=== PATIENT | female | born 1945 | race Caucasian/White ===

== ENCOUNTER 2021-05-29 11:12 | Inpatient (IN) | payer MEDICARE, BC ==
[2021-05-29] MEDS: HYDROmorphone 1 MG/ML Syringe IVPUSH PRN ×2 (15:06→21:04)
[2021-05-29] MEDS: Ondansetron 4 MG/2 ML SDV IV PRN ×2 (15:14→21:04)
[2021-05-29] MEDS: TACROLIMUS 1 MG PO SCH ×2 (16:10→21:09)
[2021-05-29] MEDS: Pantoprazole 40 MG Vial IVPUSH SCH (16:13)
--- NOTE | 2021-05-29 18:48 | HP ---
CHIEF COMPLAINT: Abdominal pain. HISTORY OF PRESENT ILLNESS: This 75-year-old female with significant history of a liver transplant back in 2008 for chronic active hepatitis who had a spell of pancreatitis remotely after transplant and then another one in 12/2019 after a fatty meal, that one was mild, she was treated outpatient, and she had a CT then. Today, she comes in with mid epigastric pain for 2 days. No vomiting but not really being able to eat, radiates to her back. This is severe, 9/10. She is having stools. They have been soft. No constipation. She just finished a course of doxycycline for her lungs. She otherwise has not had any cough. No shortness of breath. She has received her third COVID dose. She has had no fever or chills. No blood in her stool. ALLERGIES: Do include Augmentin, clarithromycin, grapefruit, pomegranate, and vancomycin. MEDICATIONS: Medication list is reviewed. Norflex as needed for muscle spasms; allopurinol 100 mg daily; Zithromax on Tuesday, Tuesday, and Tuesday; Tylenol 650 every 6 hours as needed for pain; Zoloft 50 mg daily; metformin 1000 in the morning and 1 in the evening; [place]-3; Pravachol 40 mg daily; Prilosec 20 mg daily; multivitamin; Lopressor 50 mg twice daily; Prograf 1 mg twice daily; and calcium 600 twice daily. PAST MEDICAL HISTORY: Includes atypical red blood cell antibodies; idiopathic gout; acute pancreatitis, unknown cause listed, she does not drink alcohol; colon polyps; and AVMs with peptic ulcer disease in the past. Alcohol abuse is listed on her chart, but the patient denies. Chronic active hepatitis since 1993, eventually had a liver transplant at [place] in 2008; depression; connective tissue disease; diverticulosis; essential hypertension; fibrocystic breasts; hemochromatosis; skin cancer, not melanoma; Mycobacterium avium complex; obstructive sleep apnea; overweight; osteoarthritis of the knees; stage 3 chronic kidney disease; previous subarachnoid hemorrhage in the past from alcohol; type 2 diabetes, probably since about 2012; and umbilical hernias seen on CT, she has not had surgery on them. SURGICAL HISTORY: Would be the liver transplant; cholecystectomy, which was open; hysterectomy; and knee arthroscopy bilateral. SOCIAL HISTORY: The patient is . She lives at home with her . She has 4 children. She does not smoke. Denies alcohol. FAMILY HISTORY: Both parents are . Both had heart disease. She has a sister who had lymphoma, non-Hodgkin's. REVIEW OF SYSTEMS: General: The patient is unaware of any fever or chills. No recent weight changes from 2 months ago. However, over the past year and a half, she has lost like 10 pounds. HEENT: No sore throat. No trouble swallowing. Cardiac: No chest pain. No palpitations. Respiratory: No cough, no shortness of breath. Abdominal: She has abdominal pain and nausea but no vomiting. No diarrhea. No constipation. Otherwise, all systems reviewed and found to be negative unless stated in HPI. PHYSICAL EXAMINATION: Vital Signs: On the admission to the hospital, her blood pressure is 129/71, temperature 98.4, pulse 73, respiratory rate 18, and O2 of 96% on room air. Weight is 146 pounds. General: She is in no acute distress. She is resting in the chair. Heart: Regular rate and rhythm. S1, S2 without murmur. Lungs: Lung sounds are clear to auscultation bilaterally without crackles or wheezes. Abdomen: Nondistended. Positive bowel sounds but it is exquisitely tender. Tender is in the mid epigastric to upper abdomen. There is no rebound. No guarding. Extremities: Warm and dry. No edema. Mental Status: She is alert. She is orientated x3. She is answering questions appropriately. LABORATORY DATA: Lab work collected in the clinic does show a normal white count of 8, hemoglobin 13.6, and platelets 257. Lipase over 3000 drawn at [facility]. Glucose 152, BUN 21, creatinine 1, sodium 138, potassium 4.5, chloride 105, bicarbonate 22, calcium 9.7, albumin 4, AST 13, ALT 8, and bilirubin 0.5. Urine is 0 to 5 wbc's and rbc's. Her last lipids done in February, triglycerides were just 198. Her abdominal x-ray shows a nonobstructive bowel gas pattern, maybe some mild constipation or stool burden, nothing concerning. ASSESSMENT: 1. Acute pancreatitis. This is recurrent. Etiology is unclear. I am not sure if it is related to her Prograf medication I didn't see it listed on side effects. I did call [place] and updated them. For now, she will be admitted for IV fluids, pain control with Dilaudid. NPO status. We will check a lactic acid and lipid panel and repeat lab work in the morning. 2. Liver transplant back in 2008. Liver function testing is normal. We will monitor closely. Continue Prograf. 3. Deep vein thrombosis prophylaxis will be with Lovenox. 4. Type 2 diabetes. We will hold her metformin and do b.i.d. Accu-Cheks. 5. Chronic kidney disease, quite stable. We will monitor closely. 6. Overweight. 7. Abdominal hernias. None of them seem to be causing her symptoms. We will proceed with a CT if her symptoms fail to improve. 8. Dehydration. We will give her IV fluids. PLAN: The patient is admitted for acute cares for IV fluids and pain control. We will keep her n.p.o. We will put her on Lovenox for DVT prophylaxis. We will monitor lab work. Anticipate she will need at least a 2 night stay. She is a code level 1. MKA: 05/29/2021 12:00:59 MODL: 05/29/2021 18:41:38 /[id number] [place]
[2021-05-30] MEDS: Ondansetron 4 MG/2 ML SDV IV PRN ×4 (02:12→19:51)
[2021-05-30] MEDS: HYDROmorphone 1 MG/ML Syringe IVPUSH PRN ×6 (02:20→23:28)
[2021-05-30] MEDS: Sodium Chloride 0.9% 10 ML Syringe FLUSH PRN (02:33)
[2021-05-30] MEDS: Pantoprazole 40 MG Vial IVPUSH SCH (07:45)
[2021-05-30] MEDS: TACROLIMUS 1 MG PO SCH ×2 (07:53→19:51)
[2021-05-30 08:16] LABS: ANION GAP 16.6 mmol/L (5-15)
[2021-05-30] MEDS ORDERED: Ketorolac 15 MG/ML SDV IVPUSH ONE (09:02)
[2021-05-30] MEDS ORDERED: Sodium Chloride 0.9% 1,000 ML IV SCH (09:15)
[2021-05-30] MEDS: Enoxaparin 40 MG/0.4 ML Syringe SUBCUT SCH (09:30)
--- NOTE | 2021-05-30 09:48 | PN ---
Progress Note for JOCELIN KRISHNAMURTHY Date: 05/30/2021 Room #: VM.215 SUBJECTIVE: This is hospital day #2 on a 75-year-old admitted with pancreatitis. This is her third episode. She has had a previous liver transplant. Etiology is unclear. She states that initially the Dilaudid 0.5 was helping to take her pain from like a 9 to a 0, but as soon as it wore off, it would come right back, and she had to wait about 2 hours overnight to get her pain medicine. She also had nausea from taking her pills, the Prograf. She got some IV Zofran this morning despite getting her hydromorphone over an hour ago. She is still having quite a bit of pain, and she started having a headache, 8/10 frontal, which is not a usual thing for her. Otherwise, neurologic exam was normal. She is not coughing. She is breathing okay. She is not having bowel movements. She has not thrown up. She has been afebrile. She was not placed on IV fluids yesterday, and she feels dry. OBJECTIVE: Vital Signs: Her temperature 97.7, pulse 82, blood pressure 135/78, respiratory rate 15, and O2 of 96% on room air. General: She is in no acute distress. Heart: Regular rate and rhythm. Lungs: Lung sounds are clear to auscultation bilaterally without crackles or wheezes. Abdomen: Has positive bowel sounds. It is soft, nondistended but there is tenderness in the periumbilical area. Mental Status: She is alert and orientated x3. Extremities: Warm, dry. No edema. LABORATORY DATA: Shows a white count 6.5, hemoglobin 13.2, and platelets 204. Sodium 141, potassium 4.6, chloride 106, bicarbonate 23, BUN 24, creatinine 1, glucose 115, lactic was normal on admission, bilirubin 0.4, AST 11, ALT 12, and triglycerides normal. ASSESSMENT: 1. Acute pancreatitis with history of liver transplant. The patient has previously had her gallbladder removed. Symptoms have not improved or worsened. We will increase her Dilaudid to 1 mg p.r.n. for pain. We will start her on IV fluids. We will get a CT scan to check her abdomen. We will try a dose of ketorolac x1 to also help with her headache. We will continue n.p.o. 2. History of liver transplant. She is on her Prograf. We will monitor liver enzymes. I did leave a message for mail. 3. Deep venous thrombosis prophylaxis. She is on Lovenox. 4. Type 2 diabetes. Blood sugars are controlled. Her metformin is on hold. We will continue to monitor. 5. Chronic kidney disease, stable. Her creatinine is 1. She will get the CT today with contrast. 6. Overweight. 7. Abdominal hernia. There is no indication of a bowel obstruction. 8. Dehydration. Again, she is going to get some IV fluids. PLAN: The patient will continue on acute cares with IV fluids, IV pain control, and n.p.o. status. CT scan of the abdomen today. For her headache, we will try the Toradol and a cold washcloth. I suspect this could be just due to being up most of the night with the abdominal pain. Her pupils are equal, round, and reactive to light and again, her neurologic exam is intact and her blood pressure is also under good control currently at 135/78. MKA: 05/30/2021 09:10:27 MODL: 05/30/2021 09:42:50 /[id number]
[2021-05-30] MEDS ORDERED: Iopamidol 612 MG/ML 100 ML Bottle IVPUSH ONE (11:40)
--- NOTE | 2021-05-30 14:50 | CT ---
[id number] CT/CT Abdomen Pelvis W IV EXAM: CT Abdomen Pelvis W IV CLINICAL DATA: PANCREATITIS. COMPARISON STUDY: December 24, 2019 FINDINGS: Dependent atelectasis at the lung bases bilaterally. Generalized hypodensity liver consistent with hepatic steatosis. The spleen, adrenal glands, kidneys are unremarkable. Peripancreatic fat stranding especially in the region of the pancreatic head. No fluid collection, free fluid. No splenic artery aneurysm. The portal vein is patent. Left upper quadrant varices. Colonic diverticulosis without evidence of acute diverticulitis. Moderate to large amount of retained stool within the colon. No evidence of obstruction. Atherosclerotic calcifications of aorta and its branches. Post surgical changes following ventral hernia repair. Scattered changes of spondylosis the spine. No fracture or osseous lesion. IMPRESSION: 1. Peripancreatic fat stranding consistent with acute uncomplicated pancreatitis. Correlation with lipase levels is recommended. Rohan Lyn DO 05/30/21 7340 Thank you for allowing us to participate in the care of your patient.
[2021-05-30] MEDS ORDERED: Magnesium Sulfate/Water 2 GM in Premix Bag 1 BAG IV ONE (15:55)
[2021-05-30] MEDS: Dextrose 5%-0.9% NaCl 1,000 ML IV SCH (18:29)
[2021-05-31] MEDS: Ondansetron 4 MG/2 ML SDV IV PRN ×5 (02:21→21:11)
[2021-05-31] MEDS: HYDROmorphone 1 MG/ML Syringe IVPUSH PRN ×5 (02:21→23:18)
[2021-05-31] MEDS: Dextrose 5%-0.9% NaCl 1,000 ML IV SCH (02:22)
[2021-05-31] MEDS: Pantoprazole 40 MG Vial IVPUSH SCH (07:35)
[2021-05-31] MEDS: Enoxaparin 40 MG/0.4 ML Syringe SUBCUT SCH (07:47)
[2021-05-31 08:19] LABS: ANION GAP 12.1 mmol/L (5-15)
[2021-05-31] MEDS ORDERED: Ketorolac 15 MG/ML SDV IVPUSH ONE (09:10)
[2021-05-31] MEDS: TACROLIMUS 1 MG PO SCH ×2 (09:39→20:33)
[2021-05-31] MEDS ORDERED: HYDROmorphone 1 MG/ML Syringe SUBCUT PRN (10:53)
[2021-05-31] MEDS ORDERED: Lactulose Soln 10 GM/15 ML 30 ML UD Cup PO PRN (11:14)
--- NOTE | 2021-05-31 12:01 | PN ---
Progress Note for JOECLIN KRISHNAMURTHY Date: 05/31/2021 Room #: VM.215 SUBJECTIVE: This is hospital day #3 on a 75-year-old admitted with pancreatitis. She had increased abdominal pain overnight. She was receiving her pain medication about every 4 hours or so. She had 4 mg IV yesterday and then at 2 a.m. she had 1 mg, but had to wait until 7:30 for her next dose and had increasing and worsening pain. She did get some Toradol yesterday which helped with her pain and headache. She is willing to try another dose. She tried eating some Jell-O and things, but that made her nauseated and having cramps. She did have a low blood sugar down to 74 and so was given some juice and put on D5 and feels much better, less shaky now. She has not had any cough or shortness of breath. She had been dealing with a lung thing and completed doxycycline. She has a history of a liver transplant and is due for an outpatient Prograf level through the [facility], but took her dose already today. Lipase was over 3000 on admission, it was repeated today down to 478. She also had an abdominal CT yesterday due to her continued pain and it showed her to have pancreatitis with fat-stranding consistent with uncomplicated pancreatitis. Otherwise, there were no bowel obstructions. The patient is passing gas. She has not had a bowel movement. She did have some stool noted on the CT. PHYSICAL EXAMINATION: Vital Signs: Her weight 67.1 kg, temp 98.4, pulse 107, blood pressure 98/61, respiratory rate 14, O2 of 92% on room air. General: She is in no acute distress. Heart: Regular rate and rhythm. S1, S2 without murmur. Lungs: Lung sounds are clear to auscultation bilaterally without crackles or wheezes. Abdomen: Nondistended. Positive bowel sounds. It is soft. There is still some midepigastric and periumbilical tenderness. Extremities: Warm and dry. No edema. Mental Status: She is alert. She is orientated x3. She seems to be mentating okay. She does not feel like she can focus as well, she thinks it is the medications. LABORATORY DATA: Lab work today shows white count normal 6.6, hemoglobin 11.6, platelets 181. Sodium 138, potassium 4.1, chloride 106, bicarb 24, BUN 17, creatinine 1, glucose 161, calcium 8.3, bilirubin 0.3, AST 47, ALT 48, alkaline phosphatase 98, albumin 2.7, lipase down to 478. ASSESSMENT: 1. Acute pancreatitis, uncomplicated by CT with improving lipase, but still with continued pain issues. Do feel like this is due to having a prolonged period without getting her pain medicine. Therefore, we will increase to Dilaudid q.3 hours p.r.n. for pain. We will give her another dose of Toradol today. We will continue clear liquids and stop the D5 fluids. Repeat lab work tomorrow. 2. History of liver transplant. She is on Prograf. We will draw prograf labs if the lab is able to do so in the morning before she gets her medications. 3. Deep venous thrombosis prophylaxis, on Lovenox. 4. Constipation with stool on CT. We will start her on senna and have lactulose p.r.n. 5. Type 2 diabetes with hyperglycemia due to D5. We will stop that. Her metformin is on hold. We will continue with Accu-Cheks to ensure no hypoglycemia. 6. Chronic kidney disease. Creatinine stable around 1. 7. Overweight. 8. Abdominal hernias. 9. Dehydration, resolved. PLAN: The patient will continue on acute cares with IV Dilaudid for pain control. We will advance diet when she is able. Anticipate she will need at least another couple of days of acute care. MKA: 05/31/2021 11:17:43 MODL: 05/31/2021 11:41:55 /[id number] [place]
[2021-05-31] MEDS ORDERED: Orphenadrine 100 MG Tab.ER PO PRN (21:27)
[2021-06-01] MEDS: HYDROmorphone 1 MG/ML Syringe IVPUSH PRN ×6 (02:04→19:58)
[2021-06-01 07:37] LABS: CHLORIDE,CL 106 mmol/L (98-107); SODIUM,NA 139 mmol/L (136-145)
[2021-06-01 07:38] LABS: ANION GAP 13.2 mmol/L (5-15)
[2021-06-01] MEDS: Ondansetron 4 MG/2 ML SDV IV PRN ×2 (08:23→19:56)
[2021-06-01] MEDS: Sodium Chloride 0.9% 10 ML Syringe FLUSH PRN ×3 (08:23→20:00)
[2021-06-01] MEDS: Pantoprazole 40 MG Vial IVPUSH SCH (08:23)
[2021-06-01] MEDS: Enoxaparin 40 MG/0.4 ML Syringe SUBCUT SCH (08:23)
[2021-06-01] MEDS: Sertraline 50 MG Tab PO SCH (08:24)
[2021-06-01] MEDS: Allopurinol 100 MG Tab PO SCH (08:24)
[2021-06-01] MEDS: TACROLIMUS 1 MG PO SCH ×2 (08:25→20:14)
[2021-06-01] MEDS: tiZANidine 4 MG Tab PO PRN ×2 (09:45→19:57)
[2021-06-01] MEDS ORDERED: Magnesium Sulfate/Water 4 GM in Premix Bag 1 BAG IV ONE (12:09)
[2021-06-01] MEDS: Omeprazole 20 MG Cap.CR PO SCH (12:28)
[2021-06-01] MEDS: Magnesium Oxide 400 MG Tab PO SCH (12:28)
[2021-06-01] MEDS: Metoprolol Tartrate 50 MG Tab PO SCH ×2 (12:28→19:56)
[2021-06-01] MEDS ORDERED: Azithromycin 250 MG Tab PO SCH (12:30)
--- NOTE | 2021-06-01 12:57 | PN ---
Progress Note for JOCELIN KRISHNAMURTHY Date: 06/01/2021 Room #: VM.215 SUBJECTIVE: This is hospital day #4 on a 75-year-old admitted with pancreatitis, which she has had a couple of times before. She denies alcohol use. She has had a liver transplant over 10 years ago. She continues to have pain that is well relieved by the hydromorphone and she did get her last dose around 6 a.m., but pain is returning. It has been lasting 3 hours prior to that. She got a total of 3 mg yesterday and then another 2 mg overnight. She also started having painful back spasms and I did reorder her Norflex and Zanaflex, but she has not gotten a dose yet. She is not having any cough or trouble breathing, but complains that her mouth is quite dry. She was encouraged to drink more. She is tolerating Jell-O, but wants to take it slow with the diet. The broth sort of irritates her. She has not had a bowel movement yet. She has felt nauseated and has had Zofran and is on IV Protonix. She also did get some IV magnesium on Tuesday. Magnesium was not back yet when I rounded on her, but it did return at 1.4 likely contributing also to her spasms. She has underlying diabetes and had some hypoglycemia, so was given D5 but fluids have been stopped and now blood sugars are excellent at 114. Her metformin is still on hold. She is normally on metoprolol, but had not been receiving any of her oral medications, but had been receiving her Prograf for her history of liver transplant. The patient also did get another dose of IV Toradol yesterday to help with pain. OBJECTIVE: Vital Signs: Her temperature is 97.8; pulse 89; blood pressure 136/74, but recent 148/74; respiratory rate 14; and O2 of 91% on room air. General: She is in no acute distress. Heart: Regular rate and rhythm. S1, S2 without murmur. Lungs: Sounds are clear to auscultation bilaterally without crackles or wheezes. Abdomen: Nondistended. Positive bowel sounds. Tender to the mid epigastric area. No rebound or guarding. Extremities: Warm and dry. No edema. Mental Status: She is alert. She is orientated x3. Mood does seem slightly anxious. LABORATORY DATA: Laboratory work returned showing her to have a white count of 4.8, hemoglobin 11.2, platelets 171. ASSESSMENT AND PLAN: 1. Pancreatitis, day #4, still with pain, requiring IV narcotics but not worsening. She has had a CT. Her lipase was improving. We will continue the clear liquid diet and advance as tolerated. She is off IV fluids. We will repeat lab work tomorrow. 2. History of liver transplant. She is on Prograf. We are sending out her levels to mail per their request. 3. Deep vein thrombosis prophylaxis, on Lovenox. 4. Constipation. We are starting the oral magnesium. She is on senna. 5. Muscle spasms, probably due to low magnesium. Her muscle relaxers have been restarted. We will give her some IV magnesium today. 6. Hypomagnesemia. We will replace IV and orally. 7. Type 2 diabetes, controlled. We will continue to hold metformin. 8. Essential hypertension. We will restart metoprolol. 9. Chronic kidney disease. Her creatinine is stable. 10.Overweight. 11.Abdominal hernias, not causing any symptoms. 12.Headaches, resolved, probably due to some dehydration from the pancreatitis. PLAN: The patient will continue acute cares with IV Dilaudid for pain control and IV Zofran for nausea. I will also start her on some IV Reglan today as she is reporting mostly nausea affecting her appetite and we will restart most of her oral home medications. Repeat lab work tomorrow. She is off IV fluids. MKA: 06/01/2021 12:31:57 MODL: 06/01/2021 12:51:18 /[id number]
[2021-06-01] MEDS: Metoclopramide 10 MG/2 ML SDV IVPUSH SCH (16:23)
[2021-06-02] MEDS: HYDROmorphone 1 MG/ML Syringe IVPUSH PRN ×3 (02:04→08:07)
[2021-06-02] MEDS: Sodium Chloride 0.9% 10 ML Syringe FLUSH PRN ×2 (02:07→08:07)
[2021-06-02] MEDS: Omeprazole 20 MG Cap.CR PO SCH (06:34)
[2021-06-02] MEDS: Metoclopramide 10 MG/2 ML SDV IVPUSH SCH ×3 (06:34→16:38)
[2021-06-02] MEDS: Sertraline 50 MG Tab PO SCH (08:05)
[2021-06-02] MEDS: Pravastatin 20 MG Tab PO SCH (08:05)
[2021-06-02] MEDS: Enoxaparin 40 MG/0.4 ML Syringe SUBCUT SCH (08:05)
[2021-06-02] MEDS: TACROLIMUS 1 MG PO SCH ×2 (08:06→20:39)
[2021-06-02] MEDS: Allopurinol 100 MG Tab PO SCH (08:06)
[2021-06-02] MEDS: Metoprolol Tartrate 50 MG Tab PO SCH ×2 (08:06→20:37)
[2021-06-02] MEDS: Magnesium Oxide 400 MG Tab PO SCH (08:06)
[2021-06-02] MEDS: Lactulose Soln 10 GM/15 ML 30 ML UD Cup PO SCH ×3 (09:40→20:36)
[2021-06-02] MEDS: traMADol 50 MG Tab PO PRN ×2 (09:41→20:37)
--- NOTE | 2021-06-02 09:53 | PN ---
Progress Note for JOCELIN KRISHNAMURTHY Date: 06/02/2021 Room #: VM.215 SUBJECTIVE: Patient is still in quite a bit of discomfort. Her worst discomfort is her low back pain that seems to go down her back of her leg. She does have some lower abdominal discomfort. She has tolerated her Jell-O and clear liquids. Patient refused and declined to work with Physical Therapy yesterday. OBJECTIVE: Vital Signs: Patient's temperature is 36.3, pulse 72, blood pressure is 110/75, respiratory rate 16, saturations are 94%. Skin: [place], warm, and dry. Abdomen: Has bowel sounds present. It is diffusely sore, but no guarding, no rebound. Back: She also does have tenderness to palpation on her lower back, lumbar muscles, left and right. General: Patient is somewhat groggy in appearance and does tend to keep her eyes closed. LABORATORY DATA: No lab work was done today. IMPRESSION: 1. Acute pancreatitis, which is improving. 2. History of liver transplant. 3. Constipation, noted per CT scan. 4. Low back pain, acute. 5. Deep venous thrombosis prophylaxis. 6. Type 2 diabetes mellitus. 7. Hypertension. 8. Chronic kidney disease. PLAN: We will recheck lab work today. We will have patient be on scheduled lactulose. We will have Physical Therapy work also with her low back pain. We will reduce her Dilaudid dose, and we will also offer tramadol for pain control as well for patient to hopefully not be as sedating for patient. I will review when her lab work comes back today. GM06/02/2021 09:30:08 MODL: 06/02/2021 09:45:26 /[id number]
[2021-06-02 10:08] LABS: CHLORIDE,CL 101 mmol/L (98-107); SODIUM,NA 138 mmol/L (136-145)
[2021-06-02 10:09] LABS: ANION GAP 14.2 mmol/L (5-15)
[2021-06-02] MEDS: Ondansetron 4 MG/2 ML SDV IV PRN (15:10)
[2021-06-02] MEDS: HYDROmorphone 0.5 MG/0.5 ML Syringe IVPUSH PRN (15:11)
[2021-06-02] MEDS: Sodium Chloride 0.9% 1,000 ML IV SCH ×2 (16:38→22:56)
[2021-06-02] MEDS: tiZANidine 4 MG Tab PO PRN (20:38)
[2021-06-03] MEDS: HYDROmorphone 0.5 MG/0.5 ML Syringe IVPUSH PRN ×2 (04:03)
[2021-06-03] MEDS ORDERED: Flumazenil 0.1 MG/ML 5 ML MDV IVPUSH PRN (04:52)
[2021-06-03] MEDS ORDERED: Morphine 2 MG/ML SYRINGE IVPUSH PRN (04:55)
[2021-06-03] MEDS: LORazepam 2 MG/ML SDV IVPUSH PRN ×2 (05:08→23:34)
[2021-06-03] MEDS: Sodium Chloride 0.9% 1,000 ML IV SCH ×3 (05:33→18:34)
[2021-06-03] MEDS: Omeprazole 20 MG Cap.CR PO SCH ×2 (05:35→06:05)
[2021-06-03] MEDS: Metoclopramide 10 MG/2 ML SDV IVPUSH SCH ×3 (05:35→11:43)
[2021-06-03 07:27] LABS: CHLORIDE,CL 105 mmol/L (98-107); SODIUM,NA 140 mmol/L (136-145)
[2021-06-03 07:29] LABS: ANION GAP 12.9 mmol/L (5-15)
[2021-06-03] MEDS: Ondansetron 4 MG/2 ML SDV IV PRN ×2 (08:31)
[2021-06-03] MEDS: Azithromycin 250 MG Tab PO SCH (08:31)
[2021-06-03] MEDS: Allopurinol 100 MG Tab PO SCH (08:31)
[2021-06-03] MEDS: Lactulose Soln 10 GM/15 ML 30 ML UD Cup PO SCH ×3 (08:31→20:07)
[2021-06-03] MEDS: Sodium Chloride 0.9% 10 ML Syringe FLUSH PRN ×4 (08:31→23:38)
[2021-06-03] MEDS: Pravastatin 20 MG Tab PO SCH (08:32)
[2021-06-03] MEDS: Metoprolol Tartrate 50 MG Tab PO SCH ×2 (08:33→20:06)
[2021-06-03] MEDS: Sertraline 50 MG Tab PO SCH (08:33)
[2021-06-03] MEDS: Magnesium Oxide 400 MG Tab PO SCH (08:33)
[2021-06-03] MEDS: Enoxaparin 40 MG/0.4 ML Syringe SUBCUT SCH (08:34)
[2021-06-03] MEDS: TACROLIMUS 1 MG PO SCH ×2 (08:35→20:07)
[2021-06-03] MEDS: traMADol 50 MG Tab PO PRN (08:37)
[2021-06-03 09:14] LABS: PCO2 ARTERIAL,POC 41 mmHg (35-48)
--- NOTE | 2021-06-03 09:17 | PN ---
Progress Note for JOCELIN KRISHNAMURTHY Date: 06/03/2021 Room #: VM.215 SUBJECTIVE: The patient had a restless night, was more confused during the night. We switched her from Dilaudid to morphine. Also did order some Xanax for her. This morning, she complains about pain in her lower abdomen as well as her back. The patient is not much interested in eating. Yesterday, she did not work with Physical Therapy as she became lightheaded. We did start IV fluids on her to help with hydration status. OBJECTIVE: Vital Signs: Her temperature is 36.6, pulse 85, blood pressure 148/76, respiratory rate 16, saturations are 95 on 1.5 L. General: Patient is lying in bed. She is a little bit more confused. Speech is somewhat rambling. She is lying with her clothes off. Heart: Regular rate. Lungs: Clear. Abdomen: Bowel sounds present. It is slightly distended but soft. She has lower suprapubic tenderness, also low back pain. LABORATORY DATA: Labs back so far this morning, her BMP shows sodium 140, potassium 3.9, creatinine 0.9, GFR greater than 60, glucose 152, calcium 8.1. Ammonia level was 40. IMPRESSION: 1. Abdominal pain, unclear etiology. 2. Possible acute pancreatitis. 3. Confusion. 4. History of liver transplant. 5. Constipation. 6. Type 2 diabetes mellitus. 7. Hypertension. 8. Chronic kidney disease, stage 2. PLAN: We will check more lab work today on patient as well as blood gases. We did offer Ativan for anxiety. We will give oxygen. The patient's diet will slowly be advanced if she tolerates it. If she does not improve by tomorrow, she may need transfer elsewhere. GM06/03/2021 08:35:02 MODL: 06/03/2021 09:09:03 /[id number]
--- NOTE | 2021-06-03 12:24 | PCM.SN.2 ---
- Free Text/Narrative Note: additional labs reviewed today and not impressive, ABG, LFT's. UA is still pending. Will stop Reglan as this may be adding to confusion.
[2021-06-03] MEDS ORDERED: Iopamidol 612 MG/ML 100 ML Bottle IVPUSH ONE (16:35)
--- NOTE | 2021-06-03 17:13 | PCM.SN.2 ---
- Free Text/Narrative Note: Will set up pt for repeat abd/pelivc CT for continued pain. Also will use short term toradol for pain, and hold her lovenox. Dr Vivian Newman will be accreditation manager tonight and will address results of CT.
--- NOTE | 2021-06-03 17:14 | CT ---
[id number] CT/CTA Abdomen Pelvis EXAM: CTA Abdomen Pelvis CLINICAL DATA: ABDOMINAL PAIN. COMPARISON STUDY: May 30, 2021. FINDINGS: Lung bases: Scarring and bronchiectasis. An examination of the abdomen/pelvis was performed 4 days prior. Previously seen changes of mild peripancreatic fat stranding on the prior examination have resolved. Again seen are varices in the upper abdomen, similar to the prior examination as well. Cholecystectomy. Postcholecystectomy dilation of the common bile duct. Scattered colonic diverticula. No evidence of acute diverticulitis. No colitis. No small bowel obstruction or inflammation. Abdominal aorta atherosclerosis. No aneurysm. No dissection. Urinary bladder is markedly distended but otherwise unremarkable. Bones and soft tissues: Spondylosis. No acute fracture or compression deformity. IMPRESSION: Previously seen subtle peripancreatic fat stranding has resolved since the prior examination. No new findings in the abdomen or pelvis since that time. Henry Mosquera MD 06/03/21 2821 Thank you for allowing us to participate in the care of your patient.
[2021-06-03] MEDS: Ketorolac 15 MG/ML SDV IVPUSH PRN (18:30)
[2021-06-04] MEDS: Ketorolac 15 MG/ML SDV IVPUSH PRN ×2 (06:15→16:18)
[2021-06-04] MEDS: Omeprazole 20 MG Cap.CR PO SCH (06:16)
[2021-06-04] MEDS: Sodium Chloride 0.9% 10 ML Syringe FLUSH PRN (06:19)
[2021-06-04 07:46] LABS: CHLORIDE,CL 100 mmol/L (98-107); SODIUM,NA 138 mmol/L (136-145)
[2021-06-04 08:00] LABS: ANION GAP 12.7 mmol/L (5-15)
[2021-06-04] MEDS: Lactulose Soln 10 GM/15 ML 30 ML UD Cup PO SCH ×3 (08:50→19:37)
[2021-06-04] MEDS: Ondansetron 4 MG/2 ML SDV IV PRN ×2 (08:50→16:19)
[2021-06-04] MEDS: TACROLIMUS 1 MG PO SCH ×2 (08:51→11:59)
[2021-06-04] MEDS: Sertraline 50 MG Tab PO SCH (08:51)
[2021-06-04] MEDS: Pravastatin 20 MG Tab PO SCH (08:51)
[2021-06-04] MEDS: Allopurinol 100 MG Tab PO SCH (08:51)
[2021-06-04] MEDS: Magnesium Oxide 400 MG Tab PO SCH (08:54)
[2021-06-04] MEDS: Metoprolol Tartrate 50 MG Tab PO SCH ×2 (08:54→19:37)
[2021-06-04] MEDS ORDERED: Sodium Chloride 0.9% 1,000 ML IV SCH ×2 (09:00→15:45)
[2021-06-04] MEDS: traMADol 50 MG Tab PO PRN (09:01)
--- NOTE | 2021-06-04 09:47 | PN ---
Progress Note for JOCELIN KRISHNAMURTHY Date: 06/04/2021 Room #: VM.215 SUBJECTIVE: The patient is more mentally clear today. She is recognizing her . She recognizes myself. Her has been quite concerned about her change of care not improving. Her abdominal back pain seems to have improved since her bowels have started to work. The patient otherwise offers no concerns. She comments that she does not like to void if she has a male provider, but she has been otherwise voiding quite well. OBJECTIVE: Vital Signs: Patient's weight today is 67.4 kg which is down 6 kg from day previously but actually about her admit weight. Her pulse is 84, blood pressure is 154/69, saturations are 94% on room air. General: She is alert, pleasant to visit with. Heart: Regular rate and rhythm. Lungs: Clear to auscultation. Abdomen: Bowel sounds are present. It is soft and nontender. She does not seem to exhibit the back pain that she has had. LABORATORY DATA: Her lab today shows her white blood cell count 6.1, hemoglobin 11.1 with normal differential. Sodium 140, potassium 3.9, creatinine 0.9, GFR greater than 60, glucose 152, calcium is 8.1. AST 81, which has gone up, ALT is 41. Her CRP is up to 10. Her albumin is 2.1. Procalcitonin is less than 0.05. Abdominal CT done last evening showed normal-appearing pancreas with no stranding. Diverticulosis noted, but no diverticulitis. There is no lymphadenopathy present. It was noted that her bladder was markedly distended. A bladder scan had been ordered but was not done as the patient had voided considerably last evening. Her intake yesterday was 2300 and output was not recorded. The patient was noted to be incontinent several times. IMPRESSION: 1. Abdominal pain, unclear etiology. 2. Possible mild pancreatitis, resolved. 3. Confusion, resolved, possibly related to metoclopramide. 4. History of liver transplant. 5. Constipation. 6. Type 2 diabetes mellitus. 7. Low back pain. 8. Hypertension. 9. Chronic kidney disease, stage 2. PLAN: We will have patient be turned down on her IV fluids, we will eventually stop later today. We will advance her diet to regular. She will work with Physical Therapy. We will just use Toradol for pain control if she needs parenteral pain control. Otherwise, she will have Tylenol ordered as needed. Her Lovenox will still be held since we did start Toradol for pain control and she will be up moving around better. She was placed on lactulose yesterday to help with bowel function and movement and we will continue the lactulose right now. If her status would improve by tomorrow, she possibly could be able to go home. GM06/04/2021 09:08:17 MODL: 06/04/2021 09:41:38 /[id number]
[2021-06-05] MEDS: traMADol 50 MG Tab PO PRN ×2 (00:25→10:05)
[2021-06-05] MEDS: Acetaminophen 325 MG Tab PO PRN ×2 (05:34→13:06)
[2021-06-05] MEDS: Omeprazole 20 MG Cap.CR PO SCH (06:45)
[2021-06-05 07:35] LABS: ANION GAP 11.6 mmol/L (5-15)
[2021-06-05] MEDS: Allopurinol 100 MG Tab PO SCH (08:01)
[2021-06-05] MEDS: Pravastatin 20 MG Tab PO SCH (08:01)
[2021-06-05] MEDS: Lactulose Soln 10 GM/15 ML 30 ML UD Cup PO SCH ×2 (08:01→13:04)
[2021-06-05] MEDS: Magnesium Oxide 400 MG Tab PO SCH (08:02)
[2021-06-05] MEDS: Azithromycin 250 MG Tab PO SCH (08:02)
[2021-06-05] MEDS: Sertraline 50 MG Tab PO SCH (08:02)
[2021-06-05] MEDS: Metoprolol Tartrate 50 MG Tab PO SCH (08:03)
[2021-06-05] MEDS: Enoxaparin 40 MG/0.4 ML Syringe SUBCUT SCH (08:08)
[2021-06-05] MEDS: TACROLIMUS 1 MG PO SCH (08:09)
[2021-06-05] MEDS ORDERED: metFORMIN 500 MG Tab PO SCH ×2 (08:45→18:00)
--- NOTE | 2021-06-05 09:12 | PN ---
Progress Note for JOCELIN KRISHNAMURTHY Date: 06/05/2021 Room #: VM.215 SUBJECTIVE: The patient is much more alert today, talkative, aware of what is going on. Unfortunately, last evening supports on her toilet had fallen off the toilet and she fell onto the floor having bumped her sacral area. She has been able to get up and walk since then, but she is more sore. Her appetite is better. Her abdominal pain does seem to be gone. OBJECTIVE: Vital Signs: Her weight yesterday had been down, but has not been taken yet today. Her temperature is 36.7, pulse 79, blood pressure is 139/75. General: She is alert, pleasant to visit with. She is noted to be somewhat forgetful. Heart: Regular rate and rhythm. Lungs: Clear to auscultation. Musculoskeletal: She does have some tenderness to palpation on her sacral area. There is no bruising noted. Abdomen: Soft. Bowel sounds are present. LABORATORY DATA: Urine test from 06/03/2021 came back with mixed gopal. Her lab today shows that her white blood cell count is 5.6, hemoglobin 10.8, platelets are 194. Sodium is 139, potassium 3.6, creatinine 1.1, BUN 9, glucose 162. LFTs are normal. Her CRP is improved to 11.0 today. Albumin is 2.3. IMPRESSION: 1. Abdominal pain, most likely related to constipation. 2. Confusion, which is improved, felt secondary to metoclopramide. 3. Low back pain after a fall on 06/04/2021. 4. History of liver transplant. 5. Constipation. 6. Type 2 diabetes mellitus. 7. Hypertension. 8. Chronic kidney disease stage 2. 9. Weakness. PLAN: Because of her weakness and fall and pelvic soreness, do feel it would be appropriate to place the patient on swing bed for a few days for therapy to work on getting her stronger. We will make certain that we keep her bowels regular and we will note the patient is on metformin to help with her blood sugar control and it seems to be appropriate right now. We are going to actually resume her metformin now since she is eating and she is not confused. We will place her on swing bed. GM06/05/2021 08:43:46 MODL: 06/05/2021 08:59:13 /[id number]
--- NOTE | 2021-06-05 13:14 | DISCH ---
Discharge transfer to swing bed. PRIMARY DIAGNOSES: 1..acute pancreatitis. 2. Lower.Abdominal pain, unclear etiology, most likely constipation 3 acute losw back pain. 4. Acute confusion. 5. Contusion to her back from fall on 06/04/2021. 6. History of liver transplant. 7. Constipation. 8. Type 2 diabetes mellitus. 9. Hypertension. 10.Chronic kidney disease stage 2. 11.Weakness. 12.Mild cognitive dysfunction. 13 Contusion to pelvis on 06/04/2021. SUMMARY OF ADMIT HISTORY AND PHYSICAL: The patient presented to the clinic on 05/29/2021 after having consistent periumbilical pain and the patient came back with epigastric pain for 2 days. No vomiting. It was severe 04/03. She was having stools that were soft, not constipated. She was consistently on a course of doxycycline for her lungs from [facility]. The patient has received her third dose of COVID. PHYSICAL EXAMINATION: Vital Signs: Blood pressure is 129/71, temperature 98.4, pulse 73, respirations 18, and saturations are 96%. Lungs: Clear to auscultation. Abdomen: Not distended. Positive bowel sounds but exquisitely tender in the epigastric area. No rebound. No guarding. Mental Status: She is alert, oriented x3. LABORATORY DATA: The patient's lab work at the clinic showed a normal white blood cell count of 8, hemoglobin 13.6, and platelets 258. Lipase over 3000 drawn at [facility]. Glucose 152, BUN 21, creatinine 1, sodium 138, potassium 4.5, chloride 108, bicarbonate 22, calcium 9.7, albumin 4, AST 13, ALT 8, and total bilirubin 0.5. Urine had 0 to 5 white blood cells and red blood cells. Lipids had showed in February triglycerides of 198. Abdominal x-ray showed nonobstructive bowel gas pattern, questionably mild constipation. SUMMARY OF HOSPITAL COURSE: The patient was admitted to acute care. A Prograf sample was obtained for patient to sent to [facility]. She was given IV fluids. Dilaudid for pain control. Kept n.p.o. She was placed on Lovenox for DVT prophylaxis. Her metformin was held because of not eating well, and Accu- Cheks were used for monitoring her blood sugars. By 05/29/2021, the patient was having significant pain particularly in her low back with moving around, nausea after taking her pills. She got some IV Zofran. Her laboratory data showed white blood cell count 6.5, creatinine was 1. Lactic acid was normal. Total bilirubin was normal. She did receive some ketorolac for headache. The patient was then noted by 05/31/2021 to have increasing abdominal pain. She was able to eat some Jell-O but then became quite nauseated, low blood sugars. Lipase was repeated at the hospital, has improved to 478 and she was continued on bowel rest. On 06/01/2021, pain was recurring again after 3 hours and she started having back spasms. She was given Norflex or Zanaflex but had not been given the patient yet. The patient had also been placed on Reglan. The patient by 06/02/2011 was becoming much more confused as well as having worsening abdominal pain. The patient will be resumed on her lactulose on a scheduled basis. She was then switched from Dilaudid to morphine to see if that would help clear her mentation and she had physical therapy ordered for her back. However, they were not able to work with her because of her severe pain as well as she felt dizzy when she stood up. Ammonia level was checked, and it was 40. Also, Ativan for p.r.n. anxiety as the patient was starting to become panicky. The patient had additional ABGs and LFTs that returned normal. Then, the Reglan was stopped on 06/03/2021, and it seemed that that move did make a big improvement of her mentation. She was able to start eating by 06/04/2021, and she was given some Toradol for pain control to stop any narcotics as well as oral tramadol, which did seem to help. Lab by 06/05/2021 showed her hemoglobin was 10.8, white blood cell count 5.6, and platelets 194. Sodium was 139, potassium 3.6, creatinine was 1.1, GFR was 49, glucose 162, and BUN was 9. LFTs were normal. CRP had improved to 11.0 after having been maximized at 18.3 on 06/04/2021. Her lactic acid had stayed normal. Her lipase was then checked on 06/04/2021, was down to 98 from maximum high of 478 on 05/31/2021. Urinalysis was checked, it was negative for infection. She did have arterial blood gases done on 06/03/2021, which showed her pH 7.38, pCO2 of 41, PO2 of 156, bicarbonate 23, and saturations were 99. Imaging done on patient also was to repeat a CT of her abdomen, which came back showing no acute process and stranding that had been noted around the pancreas on 05/30/2021 had resolved. The patient unfortunately on 06/04/2021 had a fall from her toilet seat and did have a contusion to her lower spine and so had pain from that, was felt not able to be discharged home. The patient did have resumption of her metformin on 06/05/2021 as her blood sugars were starting to run little bit higher. MEDICATIONS: Her medications at the time of transfer are Zoloft 50 mg 1 pill daily; metformin extended-release 2 pills in the morning; Prograf 1 mg b.i.d.; Pravachol 40 mg daily; omeprazole 20 mg 1 pill daily; omega-3 two capsules twice a day; multivitamin 1 pill daily; metoprolol tartrate 50 mg 1 p.o. b.i.d.; calcium carbonate 600 mg b.i.d.; allopurinol 100 mg daily; Zithromax 250 mg Tuesday, Tuesday, and Tuesday; tizanidine 2 mg 3 times a day as needed for muscle spasms or Norflex 100 mg 1 pill twice a day; metformin 500 mg 1 pill daily; and Tylenol 650 q.6 hours p.r.n. The patient is full code level status at the time of transfer to swing bed. The patient will receive physical therapy while on swing bed. I anticipate just a few days stay for patient on swing bed. GM06/05/2021 11:52:29 MODL: 06/05/2021 13:04:01 /[id number] LAWRENCE
[2021-06-05 14:12] VITALS: BP 139/70; PULSE 85
== END 2021-06-05 14:30 | disposition swing bed (61) | DRG 439 ==
LOC: VM.MS 11:12
PROVIDERS: ADMIT Family Medicine; ATTEND Family Medicine
DX: K85.90 Acute pancreatitis without necrosis or infection, unspecified (principal); Z94.4 Liver transplant status; K59.09 Other constipation; M54.50 Low back pain, unspecified; K59.00 Constipation, unspecified; E11.22 Type 2 diabetes mellitus with diabetic chronic kidney disease; I12.9 Hypertensive chronic kidney disease with stage 1 through stage 4 chronic kidney disease, or unspecified chronic kidney disease; G31.84 Mild cognitive impairment of uncertain or unknown etiology; S30.0XXA Contusion of lower back and pelvis, initial encounter; W19.XXXA Unspecified fall, initial encounter; Z79.899 Other long term (current) drug therapy; F41.9 Anxiety disorder, unspecified; Z88.1 Allergy status to other antibiotic agents; Z91.018 Allergy to other foods; M10.9 Gout, unspecified; Z87.11 Personal history of peptic ulcer disease; F32.A Depression, unspecified; N60.12 Diffuse cystic mastopathy of left breast; N60.11 Diffuse cystic mastopathy of right breast; G47.33 Obstructive sleep apnea (adult) (pediatric); M17.0 Bilateral primary osteoarthritis of knee; N18.30 Chronic kidney disease, stage 3 unspecified; Z90.710 Acquired absence of both cervix and uterus; Z90.49 Acquired absence of other specified parts of digestive tract; E86.0 Dehydration; Z20.822 Contact with and (suspected) exposure to COVID-19
CPT/HCPCS: 36415; 36600; 74174; 74177; 80048; 80053; 80061; 80076; 81001; 82140; 82150; 82803; 82947; 83605; 83690; 83735; 84145; 85025; 86140; 87086; 94760; 97110-GP; 97112-GP; 97163-GP; 97530-GP; A9270-GY; C9113; J1170; J1650; J1885; J2060; J2270; J2405; J2765; J3475; J7030; J7042; Q9967; U0002

== ENCOUNTER 2021-06-05 09:21 | Inpatient (IN) | payer MEDICARE, BC ==
[2021-06-05] MEDS ORDERED: Sodium Chloride 0.9% 10 ML Syringe FLUSH PRN (14:47)
[2021-06-05] MEDS ORDERED: Orphenadrine 100 MG Tab.ER PO PRN (14:47)
[2021-06-05] MEDS ORDERED: Flumazenil 0.1 MG/ML 5 ML MDV IVPUSH PRN (14:47)
[2021-06-05] MEDS: traMADol 50 MG Tab PO PRN ×2 (15:52→22:23)
[2021-06-05] MEDS: metFORMIN 500 MG Tab PO SCH (17:35)
[2021-06-05] MEDS: Acetaminophen 325 MG Tab PO PRN (19:53)
[2021-06-05] MEDS: Lactulose Soln 10 GM/15 ML 30 ML UD Cup PO SCH (20:25)
[2021-06-05] MEDS: Metoprolol Tartrate 50 MG Tab PO SCH (20:28)
[2021-06-05] MEDS: TACROLIMUS 1 MG PO SCH (20:37)
[2021-06-06] MEDS: Acetaminophen 325 MG Tab PO PRN (03:16)
[2021-06-06] MEDS: Omeprazole 20 MG Cap.CR PO SCH (06:22)
[2021-06-06] MEDS: Lactulose Soln 10 GM/15 ML 30 ML UD Cup PO SCH ×4 (08:41→19:45)
[2021-06-06] MEDS: metFORMIN 500 MG Tab PO SCH ×2 (08:42→17:33)
[2021-06-06] MEDS: traMADol 50 MG Tab PO PRN (08:42)
[2021-06-06] MEDS: Metoprolol Tartrate 50 MG Tab PO SCH ×2 (08:43→19:31)
[2021-06-06] MEDS: Pravastatin 20 MG Tab PO SCH (08:43)
[2021-06-06] MEDS: Allopurinol 100 MG Tab PO SCH (08:43)
[2021-06-06] MEDS: Magnesium Oxide 400 MG Tab PO SCH (08:44)
[2021-06-06] MEDS: TACROLIMUS 1 MG PO SCH ×2 (08:44→19:31)
[2021-06-06] MEDS: Sertraline 50 MG Tab PO SCH (08:44)
[2021-06-06] MEDS: Ketorolac 15 MG/ML SDV IVPUSH PRN ×2 (13:39→19:34)
[2021-06-07] MEDS: Ketorolac 15 MG/ML SDV IVPUSH PRN ×3 (01:49→19:16)
[2021-06-07] MEDS: Omeprazole 20 MG Cap.CR PO SCH (06:34)
[2021-06-07] MEDS: Pravastatin 20 MG Tab PO SCH (07:53)
[2021-06-07] MEDS: Metoprolol Tartrate 50 MG Tab PO SCH ×2 (07:53→20:18)
[2021-06-07] MEDS: Allopurinol 100 MG Tab PO SCH (07:53)
[2021-06-07] MEDS: Sertraline 50 MG Tab PO SCH (07:53)
[2021-06-07] MEDS: Magnesium Oxide 400 MG Tab PO SCH (07:53)
[2021-06-07] MEDS: Lactulose Soln 10 GM/15 ML 30 ML UD Cup PO SCH ×3 (07:54→21:16)
[2021-06-07] MEDS: metFORMIN 500 MG Tab PO SCH ×2 (07:54→17:26)
[2021-06-07] MEDS: TACROLIMUS 1 MG PO SCH ×2 (07:55→20:18)
[2021-06-07] MEDS: traMADol 50 MG Tab PO PRN (22:35)
[2021-06-08] MEDS: Ketorolac 15 MG/ML SDV IVPUSH PRN ×2 (03:44→10:36)
[2021-06-08] MEDS: Omeprazole 20 MG Cap.CR PO SCH (06:30)
[2021-06-08] MEDS: metFORMIN 500 MG Tab PO SCH ×2 (08:34→18:12)
[2021-06-08] MEDS: traMADol 50 MG Tab PO PRN ×3 (08:34→23:07)
[2021-06-08] MEDS: Azithromycin 250 MG Tab PO SCH (08:34)
[2021-06-08] MEDS: Metoprolol Tartrate 50 MG Tab PO SCH ×2 (08:34→19:33)
[2021-06-08] MEDS: Sertraline 50 MG Tab PO SCH (08:35)
[2021-06-08] MEDS: Pravastatin 20 MG Tab PO SCH (08:35)
[2021-06-08] MEDS: Allopurinol 100 MG Tab PO SCH (08:36)
[2021-06-08] MEDS: TACROLIMUS 1 MG PO SCH ×2 (08:39→23:08)
[2021-06-08] MEDS: Lactulose Soln 10 GM/15 ML 30 ML UD Cup PO SCH ×3 (08:41→23:14)
--- NOTE | 2021-06-08 09:08 | PN ---
Progress Note for JOCELIN KRISHNAMURTHY Date: 06/08/2021 Room #: VM.215 SUBJECTIVE: The patient is starting to get much better in terms of her back pain. Her nausea has gone away. She is still weak as she has not worked with therapies much. To note, she had been admitted on acute care on 05/29/2021 with acute pancreatitis and had been transferred to swing bed on 06/05/2021. The patient is much better in terms of mental tracking as it was felt that she most likely got very confused from her metoclopramide. OBJECTIVE: Vital Signs: The patient's temperature is 36.6, pulse 79, blood pressure is 146/70, respiratory rate 16, sats are 95%. General: The patient is alert. Clear to visit with. Heart: Regular rate and rhythm. Lungs: Clear to auscultation. Abdomen: Soft, nontender. Back: She still does have some low back pain. LABORATORY DATA: Shows her hemoglobin is 10.9, which is stable from last week. Her potassium is 5.0, sodium is 139, creatinine is 1.1, GFR 49. Glucose is 157, has ranged up to 220s. Her magnesium is low at 1.6, down from 1.8 last week. Her LFTs are normal. CRP is improved to 1.7 from 11 on 06/05/2021. Her lipase is 141, which was increased from 98, but still within normal limits. IMPRESSION: 1. Acute pancreatitis, greatly improved. 2. Delirium, improved. 3. Low back pain. 4. Lower abdominal pain secondary to constipation. 5. Contusion of her back on 06/04/2021. 6. Type 2 diabetes mellitus. 7. Hypertension. 8. Chronic kidney disease stage 2. 9. Mild cognitive dysfunction. PLAN: Today will be her last day of her Toradol injections, which she says have helped greatly. We will switch her to Mobic starting tomorrow morning. We will increase her magnesium replacement. Encourage hydration. She will work with Physical Therapy today. We will need to check the weight on the patient. Anticipate discharge home later this week once she is strong enough for ambulation. GM06/08/2021 08:19:51 MODL: 06/08/2021 09:01:53 /[id number]
[2021-06-08] MEDS: Magnesium Oxide 400 MG Tab PO SCH ×2 (10:12→19:33)
[2021-06-08] MEDS: Acetaminophen 325 MG Tab PO PRN ×2 (16:46→23:07)
[2021-06-08] MEDS: Calcium Citrate/Vitamin D3 315 MG-250 Unit Tab PO SCH (18:13)
[2021-06-09] MEDS: Omeprazole 20 MG Cap.CR PO SCH (06:38)
[2021-06-09] MEDS: traMADol 50 MG Tab PO PRN ×3 (06:38→23:05)
[2021-06-09] MEDS: Acetaminophen 325 MG Tab PO PRN ×2 (06:38→19:42)
[2021-06-09] MEDS: Metoprolol Tartrate 50 MG Tab PO SCH ×2 (08:02→19:40)
[2021-06-09] MEDS: metFORMIN 500 MG Tab PO SCH ×2 (08:06→17:48)
[2021-06-09] MEDS: Pravastatin 20 MG Tab PO SCH (08:06)
[2021-06-09] MEDS: Calcium Citrate/Vitamin D3 315 MG-250 Unit Tab PO SCH ×2 (08:07→17:48)
[2021-06-09] MEDS: Lactulose Soln 10 GM/15 ML 30 ML UD Cup PO SCH (08:07)
[2021-06-09] MEDS: Allopurinol 100 MG Tab PO SCH (08:07)
[2021-06-09] MEDS: Magnesium Oxide 400 MG Tab PO SCH ×2 (08:07→19:39)
[2021-06-09] MEDS: Sertraline 50 MG Tab PO SCH (08:07)
[2021-06-09] MEDS: Meloxicam 7.5 MG Tab PO SCH (08:07)
[2021-06-09] MEDS: TACROLIMUS 1 MG PO SCH ×2 (08:08→19:41)
[2021-06-10] MEDS: Acetaminophen 325 MG Tab PO PRN (05:20)
[2021-06-10] MEDS: Omeprazole 20 MG Cap.CR PO SCH ×2 (05:21→06:07)
[2021-06-10 05:24] VITALS: BP 164/74; PULSE 74
[2021-06-10 07:39] LABS: CHLORIDE,CL 103 mmol/L (98-107); SODIUM,NA 137 mmol/L (136-145)
[2021-06-10 07:58] LABS: ANION GAP 13.1 mmol/L (5-15)
[2021-06-10] MEDS ORDERED: Lactulose Soln 10 GM/15 ML 30 ML UD Cup PO SCH (08:00)
[2021-06-10] MEDS: Pravastatin 20 MG Tab PO SCH (08:25)
[2021-06-10] MEDS: Allopurinol 100 MG Tab PO SCH (08:26)
[2021-06-10] MEDS: Magnesium Oxide 400 MG Tab PO SCH (08:27)
[2021-06-10] MEDS: Meloxicam 7.5 MG Tab PO SCH (08:27)
[2021-06-10] MEDS: Sertraline 50 MG Tab PO SCH (08:27)
[2021-06-10] MEDS: Azithromycin 250 MG Tab PO SCH (08:28)
[2021-06-10] MEDS: metFORMIN 500 MG Tab PO SCH (08:31)
[2021-06-10] MEDS: Metoprolol Tartrate 50 MG Tab PO SCH (08:32)
[2021-06-10] MEDS: Calcium Citrate/Vitamin D3 315 MG-250 Unit Tab PO SCH (08:32)
[2021-06-10] MEDS: TACROLIMUS 1 MG PO SCH (08:46)
--- NOTE | 2021-06-10 09:02 | PN ---
Progress Note for JOCELIN KRISHNAMURTHY Date: 06/10/2021 Room #: VM.215 SUBJECTIVE: The patient is ready to go home today. She is done with physical therapy today. She is still feeling weak and will have home health with home physical therapy. She is wanting to make sure she has pain medications at home for her. She has been using tramadol as well as we did start her on meloxicam yesterday. Her bowels were somewhat looser yesterday, so I did cut back on her lactulose. OBJECTIVE: Vital Signs: Her weight today is 66.7, which is down 0.4 kg from admission to [facility]. Her temperature is 36.6, pulse 74, blood pressure is 164/74, respiratory rate 16, saturations are 93 on room air. General: She is alert, converses, slightly forgetful. Heart: Regular rate and rhythm. Lungs: Clear to auscultation. Abdomen: Soft. LABORATORY DATA: Her labs today show her hemoglobin is 11.1, which is improved slightly. Sodium 137, potassium 5.1, creatinine 1.2, GFR 44, glucose 150, magnesium is improved to 1.5, but it has only been 2 days since the dose was increased of her magnesium. AST is 10. CRP is less than 2. Her lipase is 148, which is stable. IMPRESSION: 1. Acute pancreatitis, resolved. 2. Abdominal pain. 3. Delirium, improved. 4. Low back pain. 5. Contusion to her back. 6. Hypomagnesemia. 7. Type 2 diabetes mellitus. 8. Hypertension. 9. Chronic kidney disease. 10.Mild cognitive dysfunction. PLAN: We will make plans to discharge patient home today to see me back in 2 weeks' time. GM06/10/2021 08:20:57 MODL: 06/10/2021 08:56:32 /[id number]
--- NOTE | 2021-06-10 09:22 | DISCH ---
This is a discharge from swing bed. PRIMARY DIAGNOSES: 1. Acute pancreatitis. 2. Weakness. 3. Acute confusion, which is improved, or delirium. 4. Low back pain. 5. Low abdominal pain. 6. Contusion to her low back on 06/04/2021. 7. Type 2 diabetes mellitus. 8. Hypertension. 9. Chronic kidney disease stage 2. 10.Hypomagnesemia. 11.Mild cognitive dysfunction. 12.History of liver transplant. 13.Hypercholesterolemia. 14.History of chronic bronchitis per [facility]. 15. SUMMARY: The patient was admitted on 05/29/2021 with acute pancreatitis and severe lower back and abdominal pain. She was placed on bowel rest, IV fluids, given Dilaudid for pain control. To note, when she was on acute care, she was placed on Reglan to help with her nausea, but that caused acute confusion, improved once this was discontinued. She required Toradol for back pain improvement, which helped considerably and she was left on this for 5 days. Her lipase had been over up 3000 as an outpatient prior to admission and her electrolytes were monitored. Summary of swing bed course: I believe she went to swing on 06/05/21? While on swing bed, the patient continued to improve with therapies. She was noted to have a low magnesium down to 1.4, so her magnesium pills were increased. She was started on meloxicam to help with pain control in place of Toradol. She did start having some looser stools, so her lactulose was reduced to just once a day. Laboratory data on 06/10/2021 showed a hemoglobin 11.1, platelets 305, her sodium was 137, potassium 5.1, creatinine 1.2, GFR 44, BUN 21, glucose 142, calcium 10.6, magnesium 1.5. LFTs were normal. CRP was less than 0.2. Her albumin was 2.7. Lipase was 148, which was stable. Rcmj-[id number] exam visit was done on 06/10/2021 for need for home health. The patient is weak. She cannot walk further than 50 feet. She is at risk of falling. She relies on others for transportation to the clinic. She needs RN to help monitor her blood pressure, pulse, as well as response to pain medication and bowel habits, and she will need physical therapy for strengthening for gait as well as low back pain. I would like to have patient return to see me in 2 weeks' time for a clinic visit. DISCHARGE MEDICATIONS: The patient's medications at the time discharge are: Zoloft 50 mg 1 pill daily; tacrolimus 1 mg b.i.d., Pravachol 20 mg 2 pills daily, omeprazole 20 mg 1 pill daily, omega-3 fish oil 500 mg 2 pills twice a day, multivitamin 1 pill daily, metoprolol tartrate 50 mg 1 pill twice a day, allopurinol 100 mg 1 pill daily, azithromycin 500 mg 1 pill 3 times a week, Norflex 100 mg 1 pill twice a day as needed, metformin 500 mg extended release 1 pill twice a day, Tylenol 325 mg 2 pills every 6 hours p.r.n., calcium with vitamin D 250/200 one pill twice a day, lactulose 20 g daily, magnesium oxide 400 mg 1 p.o. b.i.d., meloxicam 7.5 mg 1 pill daily, tramadol 50 mg 1 pill every 6 hours as needed for pain. The patient is full code level at the time of discharge. Over 30 min time was spent preparing discharge for patient. GM06/10/2021 08:31:17 MODL: 06/10/2021 09:13:17 /[id number] MTDMehul
== END 2021-06-10 10:45 | disposition home health service (06) | DRG 947 ==
LOC: VM.MS 14:30
PROVIDERS: ADMIT Family Medicine; ATTEND Family Medicine
DX: R53.1 Weakness (principal); K85.90 Acute pancreatitis without necrosis or infection, unspecified; Z94.4 Liver transplant status; E83.42 Hypomagnesemia; M54.50 Low back pain, unspecified; R41.0 Disorientation, unspecified; K59.00 Constipation, unspecified; N18.32 Chronic kidney disease, stage 3b; I12.9 Hypertensive chronic kidney disease with stage 1 through stage 4 chronic kidney disease, or unspecified chronic kidney disease; E11.22 Type 2 diabetes mellitus with diabetic chronic kidney disease; S30.0XXA Contusion of lower back and pelvis, initial encounter; E78.00 Pure hypercholesterolemia, unspecified; W19.XXXA Unspecified fall, initial encounter
CPT/HCPCS: 36415; 80053; 82947; 83690; 83735; 85025; 86140; 97110-GP; 97530-GP; A9270-GY; J1885

== ENCOUNTER 2022-07-14 20:40 | Emergency (ER) | payer MEDICARE, BC ==
[2022-07-14] MEDS ORDERED: fentaNYL 50 MCG/ML SDV ONE (20:54)
== END 2022-07-14 20:59 | disposition short-term general hospital (02) ==
LOC: VM.ED 20:40
DX: I21.3 ST elevation (STEMI) myocardial infarction of unspecified site (principal); E78.00 Pure hypercholesterolemia, unspecified; I12.9 Hypertensive chronic kidney disease with stage 1 through stage 4 chronic kidney disease, or unspecified chronic kidney disease; E11.22 Type 2 diabetes mellitus with diabetic chronic kidney disease; N18.9 Chronic kidney disease, unspecified; M19.90 Unspecified osteoarthritis, unspecified site; Z88.1 Allergy status to other antibiotic agents; Z88.0 Allergy status to penicillin; Z91.018 Allergy to other foods; Z79.84 Long term (current) use of oral hypoglycemic drugs; Z79.899 Other long term (current) drug therapy
CPT/HCPCS: 96374; 96375; 99284; 99284-25

== ENCOUNTER 2023-04-01 16:28 | Inpatient (IN) | payer MEDICARE, BC ==
[2023-04-01] MEDS ORDERED: Naloxone 0.4 MG/ML SDV IVPUSH PRN (16:49)
[2023-04-01] MEDS ORDERED: Sodium Chloride 0.9% 1,000 ML IV ONE (16:49)
[2023-04-01] MEDS ORDERED: HYDROmorphone 0.5 MG/0.5 ML Syringe IVPUSH ONE (16:49)
[2023-04-01 17:39] LABS: BASOPHILS PERCENT AUTO 0.4 % (0.2-1.2); EOSINOPHILS ABSOLUTE AUTO 0.3 x10^3/uL (0.0-0.5); EOSINOPHILS PERCENT AUTO 5.4 % (0.0-4.0); HEMATOCRIT 38.3 % (33.0-47.0); HEMOGLOBIN 12.7 g/dL (12.0-16.0); LYMPHOCYTES ABSOLUTE AUTO 1.3 x10^3/uL (1.0-4.8); LYMPHOCYTES PERCENT AUTO 25.8 % (25.0-50.0); MEAN CORPUSCULAR HEMOGLOBIN 31.1 pg (26.0-32.0); MEAN CORPUSCULAR HGB CONC 33.2 g/dL (32.0-36.0); MEAN CORPUSCULAR VOLUME 93.9 fL (78.0-93.0); MONOCYTES ABSOLUTE AUTO 0.5 x10^3/uL (0.0-0.8); MONOCYTES PERCENT AUTO 9.1 % (2.0-11.0); NEUTROPHILS PERCENT AUTO 59.3 % (50.0-80.0); PLATELET COUNT,PLT 259 x10^3/uL (130-400); RED BLOOD CELL COUNT 4.08 x10^6/uL (4.00-5.50)
[2023-04-01 17:47] LABS: A/G RATIO 0.76; ALANINE AMINOTRANSFERASE,ALT 18 U/L (14-59); ALBUMIN 3.2 g/dL (3.4-5.0); ALKALINE PHOSPHATASE 114 U/L (46-116); ASPARTATE AMNIOTRANSFERASE,AST 17 U/L (15-37); BILIRUBIN TOTAL 0.3 mg/dL (0.2-1.0); BLOOD UREA NITROGEN,BUN 33 mg/dL (7-18); C-REACTIVE PROTEIN 0.28 mg/dL (<=0.30); CALCIUM 9.4 mg/dL (8.5-10.1); CARBON DIOXIDE,CO2 30 mmol/L (21-32); CHLORIDE,CL 99 mmol/L (98-107); CREATININE 1.5 mg/dL (0.55-1.02); GLUCOSE RANDOM 157 mg/dL (70-99); POTASSIUM,K 3.7 mmol/L (3.5-5.1); PROTEIN TOTAL,TP 7.4 g/dL (6.4-8.2); SODIUM,NA 140 mmol/L (136-145)
[2023-04-01 18:00] LABS: ANION GAP 14.7 mmol/L (5-15); ESTIMATED GFR 36 mL/min (>=60)
[2023-04-01] MEDS ORDERED: HYDROmorphone 0.5 MG/0.5 ML Syringe IVPUSH PRN (18:19)
[2023-04-01] MEDS: Sodium Chloride 0.9% 1,000 ML IV SCH (18:24)
[2023-04-01 18:42] LABS: LIPASE 525 U/L (19-71)
[2023-04-01 19:06] LABS: APPEARANCE,URINE CLEAR (CLEAR); BILIRUBIN,URINE NEGATIVE (NEGATIVE); COLOR,URINE YELLOW (YELLOW); GLUCOSE,URINE 500 mg/dL (NEGATIVE); KETONES,URINE NEGATIVE (NEGATIVE); LEUKOCYTE ESTERASE,URINE NEGATIVE (NEGATIVE); NITRITE,URINE NEGATIVE (NEGATIVE); OCCULT BLOOD,URINE NEGATIVE (NEGATIVE); PROTEIN,URINE NEGATIVE (NEGATIVE); UROBILINOGEN,URINE 0.2 EU/dL (0.2)
[2023-04-01] MEDS ORDERED: Iopamidol 612 MG/ML 100 ML Bottle IVPUSH ONE (19:29)
[2023-04-01] MEDS: HYDROmorphone 0.5 MG/0.5 ML Syringe IVPUSH PRN ×2 (20:50→23:20)
[2023-04-01] MEDS ORDERED: Lactulose Soln 10 GM/15 ML 30 ML UD Cup PO PRN (20:52)
[2023-04-01] MEDS ORDERED: Sodium Chloride 0.9% Inhalation Soln 5 ML Neb NEB PRN (20:52)
[2023-04-01] MEDS: Budesonide 0.5 MG/2 ML Neb Susp NEB SCH (22:20)
[2023-04-01] MEDS: Albuterol/Ipratropium 3.0-0.5 MG/3 ML Neb Soln NEB SCH (22:20)
[2023-04-01] MEDS: TACROLIMUS 1 MG PO SCH (22:20)
[2023-04-01] MEDS: Clopidogrel 75 MG Tab PO SCH (22:20)
[2023-04-02] MEDS: HYDROmorphone 0.5 MG/0.5 ML Syringe IVPUSH PRN ×4 (06:06→19:40)
[2023-04-02] MEDS: Sodium Chloride 0.9% 1,000 ML IV SCH (06:19)
[2023-04-02 07:36] LABS: BASOPHILS PERCENT AUTO 0.2 % (0.2-1.2); EOSINOPHILS ABSOLUTE AUTO 0.3 x10^3/uL (0.0-0.5); EOSINOPHILS PERCENT AUTO 5.4 % (0.0-4.0); HEMOGLOBIN 10.9 g/dL (12.0-16.0); LYMPHOCYTES ABSOLUTE AUTO 1.2 x10^3/uL (1.0-4.8); LYMPHOCYTES PERCENT AUTO 25.5 % (25.0-50.0); MEAN CORPUSCULAR HEMOGLOBIN 31.1 pg (26.0-32.0); MEAN CORPUSCULAR VOLUME 94.3 fL (78.0-93.0); MONOCYTES ABSOLUTE AUTO 0.5 x10^3/uL (0.0-0.8); NEUTROPHILS ABSOLUTE AUTO 2.8 x10^3/uL (1.8-7.7); NEUTROPHILS PERCENT AUTO 58.9 % (50.0-80.0); PLATELET COUNT,PLT 208 x10^3/uL (130-400); WHITE BLOOD CELL COUNT,WBC 4.8 x10^3/uL (4.0-10.0)
[2023-04-02 07:49] LABS: A/G RATIO 0.86; ALBUMIN 2.5 g/dL (3.4-5.0); BILIRUBIN TOTAL 0.2 mg/dL (0.2-1.0); CALCIUM 7.9 mg/dL (8.5-10.1); CREATININE 1.1 mg/dL (0.55-1.02); EST CRCL DRUG DOSING (CG) 31.25 mL/min; PROTEIN TOTAL,TP 5.4 g/dL (6.4-8.2)
[2023-04-02 07:50] LABS: C-REACTIVE PROTEIN 0.46 mg/dL (<=0.30); MAGNESIUM 1.6 mg/dL (1.8-2.4)
[2023-04-02 07:53] LABS: PROTHROMBIN TIME 11.2 SEC (9.5-12.2)
[2023-04-02] MEDS: Albuterol/Ipratropium 3.0-0.5 MG/3 ML Neb Soln NEB SCH (08:41)
[2023-04-02] MEDS: TACROLIMUS 1 MG PO SCH ×2 (08:41→21:55)
[2023-04-02] MEDS: Sertraline 50 MG Tab PO SCH (08:42)
[2023-04-02] MEDS: Allopurinol 100 MG Tab PO SCH (08:42)
[2023-04-02] MEDS: Budesonide 0.5 MG/2 ML Neb Susp NEB SCH ×2 (08:42→21:56)
[2023-04-02] MEDS ORDERED: Clopidogrel 75 MG Tab PO SCH (09:00)
[2023-04-02] MEDS ORDERED: Metoprolol Succinate 50 MG Tab.ER PO SCH (09:00)
[2023-04-02] MEDS ORDERED: Albuterol/Ipratropium 3.0-0.5 MG/3 ML Neb Soln NEB PRN (09:13)
[2023-04-02] MEDS ORDERED: Magnesium Sulfate/Water 2 GM in Premix Bag 1 BAG IV ONE (09:21)
[2023-04-02] MEDS ORDERED: Dextrose 5%-0.9% NaCl 1,000 ML IV SCH (09:30)
[2023-04-02] MEDS: Metoprolol Succinate 25 MG Tab.ER PO SCH (09:50)
[2023-04-02] MEDS ORDERED: Enoxaparin 40 MG/0.4 ML Syringe SUBCUT SCH (12:00)
[2023-04-02] MEDS: Acetaminophen 325 MG Tab PO PRN (17:40)
[2023-04-02] MEDS: Clopidogrel 75 MG Tab PO SCH (19:41)
[2023-04-03] MEDS: HYDROmorphone 0.5 MG/0.5 ML Syringe IVPUSH PRN ×4 (01:53→18:57)
[2023-04-03 07:54] LABS: BASOPHILS PERCENT AUTO 0.5 % (0.2-1.2); EOSINOPHILS ABSOLUTE AUTO 0.3 x10^3/uL (0.0-0.5); EOSINOPHILS PERCENT AUTO 7.3 % (0.0-4.0); HEMATOCRIT 33.2 % (33.0-47.0); HEMOGLOBIN 10.7 g/dL (12.0-16.0); LYMPHOCYTES ABSOLUTE AUTO 1.3 x10^3/uL (1.0-4.8); LYMPHOCYTES PERCENT AUTO 32.7 % (25.0-50.0); MEAN CORPUSCULAR HEMOGLOBIN 31.4 pg (26.0-32.0); MEAN CORPUSCULAR HGB CONC 32.2 g/dL (32.0-36.0); MEAN CORPUSCULAR VOLUME 97.4 fL (78.0-93.0); MONOCYTES ABSOLUTE AUTO 0.4 x10^3/uL (0.0-0.8); MONOCYTES PERCENT AUTO 9.3 % (2.0-11.0); NEUTROPHILS PERCENT AUTO 50.2 % (50.0-80.0); PLATELET COUNT,PLT 181 x10^3/uL (130-400); RED BLOOD CELL COUNT 3.41 x10^6/uL (4.00-5.50)
[2023-04-03] MEDS: Budesonide 0.5 MG/2 ML Neb Susp NEB SCH ×2 (08:08→20:11)
[2023-04-03] MEDS: Acetaminophen 325 MG Tab PO PRN ×3 (08:08→23:47)
[2023-04-03] MEDS: Sertraline 50 MG Tab PO SCH (08:09)
[2023-04-03] MEDS: Allopurinol 100 MG Tab PO SCH (08:09)
[2023-04-03 08:10] LABS: A/G RATIO 0.83; ALBUMIN 2.5 g/dL (3.4-5.0); BILIRUBIN TOTAL 0.2 mg/dL (0.2-1.0); CALCIUM 8.2 mg/dL (8.5-10.1); EST CRCL DRUG DOSING (CG) 34.38 mL/min; POTASSIUM,K 4.4 mmol/L (3.5-5.1); PROTEIN TOTAL,TP 5.5 g/dL (6.4-8.2)
[2023-04-03] MEDS: Metoprolol Succinate 25 MG Tab.ER PO SCH ×2 (08:10→10:54)
[2023-04-03] MEDS: TACROLIMUS 1 MG PO SCH ×2 (08:11→20:15)
[2023-04-03 08:22] LABS: ANION GAP 14.4 mmol/L (5-15)
[2023-04-03] MEDS: Clopidogrel 75 MG Tab PO SCH (20:11)
[2023-04-04] MEDS: Sodium Chloride 0.9% 10 ML Syringe FLUSH SCH ×3 (01:52→21:53)
[2023-04-04] MEDS: HYDROmorphone 0.5 MG/0.5 ML Syringe IVPUSH PRN ×5 (02:13→21:51)
[2023-04-04] MEDS: Acetaminophen 325 MG Tab PO PRN (06:21)
[2023-04-04 07:07] LABS: BASOPHILS PERCENT AUTO 0.9 % (0.2-1.2); EOSINOPHILS ABSOLUTE AUTO 0.3 x10^3/uL (0.0-0.5); EOSINOPHILS PERCENT AUTO 8.9 % (0.0-4.0); HEMATOCRIT 33.2 % (33.0-47.0); HEMOGLOBIN 10.8 g/dL (12.0-16.0); LYMPHOCYTES ABSOLUTE AUTO 1.2 x10^3/uL (1.0-4.8); LYMPHOCYTES PERCENT AUTO 33.5 % (25.0-50.0); MEAN CORPUSCULAR HEMOGLOBIN 31.1 pg (26.0-32.0); MEAN CORPUSCULAR HGB CONC 32.5 g/dL (32.0-36.0); MEAN CORPUSCULAR VOLUME 95.7 fL (78.0-93.0); MONOCYTES ABSOLUTE AUTO 0.4 x10^3/uL (0.0-0.8); MONOCYTES PERCENT AUTO 10.3 % (2.0-11.0); NEUTROPHILS ABSOLUTE AUTO 1.6 x10^3/uL (1.8-7.7); NEUTROPHILS PERCENT AUTO 46.4 % (50.0-80.0); PLATELET COUNT,PLT 173 x10^3/uL (130-400); RED BLOOD CELL COUNT 3.47 x10^6/uL (4.00-5.50); WHITE BLOOD CELL COUNT,WBC 3.5 x10^3/uL (4.0-10.0)
[2023-04-04 07:20] LABS: CALCIUM 8.5 mg/dL (8.5-10.1); CREATININE 0.9 mg/dL (0.55-1.02); EST CRCL DRUG DOSING (CG) 38.2 mL/min; POTASSIUM,K 4.5 mmol/L (3.5-5.1)
[2023-04-04 07:22] LABS: ANION GAP 17.5 mmol/L (5-15)
[2023-04-04] MEDS: Allopurinol 100 MG Tab PO SCH (09:03)
[2023-04-04] MEDS: Budesonide 0.5 MG/2 ML Neb Susp NEB SCH ×2 (09:03→20:34)
[2023-04-04] MEDS: Sertraline 50 MG Tab PO SCH (09:04)
[2023-04-04] MEDS: Metoprolol Succinate 25 MG Tab.ER PO SCH (09:04)
[2023-04-04] MEDS: TACROLIMUS 1 MG PO SCH ×2 (09:05→20:33)
[2023-04-04] MEDS: Famotidine 20 MG Tab PO SCH (09:06)
[2023-04-04] MEDS: Clopidogrel 75 MG Tab PO SCH (20:34)
[2023-04-05] MEDS: HYDROmorphone 0.5 MG/0.5 ML Syringe IVPUSH PRN ×4 (06:15→21:46)
[2023-04-05 07:03] LABS: BASOPHILS PERCENT AUTO 0.5 % (0.2-1.2); EOSINOPHILS ABSOLUTE AUTO 0.3 x10^3/uL (0.0-0.5); EOSINOPHILS PERCENT AUTO 7.5 % (0.0-4.0); HEMATOCRIT 34.4 % (33.0-47.0); HEMOGLOBIN 11.6 g/dL (12.0-16.0); LYMPHOCYTES ABSOLUTE AUTO 0.9 x10^3/uL (1.0-4.8); LYMPHOCYTES PERCENT AUTO 21.7 % (25.0-50.0); MEAN CORPUSCULAR HEMOGLOBIN 31.3 pg (26.0-32.0); MEAN CORPUSCULAR HGB CONC 33.7 g/dL (32.0-36.0); MEAN CORPUSCULAR VOLUME 92.7 fL (78.0-93.0); MONOCYTES ABSOLUTE AUTO 0.4 x10^3/uL (0.0-0.8); MONOCYTES PERCENT AUTO 9.4 % (2.0-11.0); NEUTROPHILS ABSOLUTE AUTO 2.6 x10^3/uL (1.8-7.7); NEUTROPHILS PERCENT AUTO 60.9 % (50.0-80.0); PLATELET COUNT,PLT 179 x10^3/uL (130-400); RED BLOOD CELL COUNT 3.71 x10^6/uL (4.00-5.50); WHITE BLOOD CELL COUNT,WBC 4.2 x10^3/uL (4.0-10.0)
[2023-04-05 07:29] LABS: A/G RATIO 0.84; ALBUMIN 2.7 g/dL (3.4-5.0); BILIRUBIN TOTAL 0.3 mg/dL (0.2-1.0); C-REACTIVE PROTEIN 0.55 mg/dL (<=0.30); CALCIUM 8.9 mg/dL (8.5-10.1); EST CRCL DRUG DOSING (CG) 34.38 mL/min; MAGNESIUM 1.2 mg/dL (1.8-2.4); POTASSIUM,K 4.4 mmol/L (3.5-5.1); PROTEIN TOTAL,TP 5.9 g/dL (6.4-8.2)
[2023-04-05 07:31] LABS: ANION GAP 17.4 mmol/L (5-15)
[2023-04-05] MEDS: Allopurinol 100 MG Tab PO SCH (08:25)
[2023-04-05] MEDS: Famotidine 20 MG Tab PO SCH (08:25)
[2023-04-05] MEDS: Sertraline 50 MG Tab PO SCH (08:25)
[2023-04-05] MEDS: Sodium Chloride 0.9% 10 ML Syringe FLUSH SCH ×2 (08:26→21:46)
[2023-04-05] MEDS: Metoprolol Succinate 25 MG Tab.ER PO SCH (08:27)
[2023-04-05] MEDS: Budesonide 0.5 MG/2 ML Neb Susp NEB SCH ×3 (09:07→20:42)
[2023-04-05] MEDS ORDERED: HYDROmorphone 1 MG/ML Syringe IVPUSH PRN (09:39)
[2023-04-05] MEDS: Tacrolimus 0.5 MG Cap PO SCH ×2 (09:51→20:33)
[2023-04-05] MEDS: Furosemide 20 MG Tab PO SCH (09:51)
[2023-04-05] MEDS: Aluminum Hydroxide/Magnesium Hydroxide/Simethicone Susp 30 ML Cup PO PRN (11:30)
[2023-04-05] MEDS: Acetaminophen/HYDROcodone 325-5 MG Tab PO PRN ×2 (14:14→20:32)
[2023-04-05] MEDS: Clopidogrel 75 MG Tab PO SCH (20:34)
[2023-04-06] MEDS: Aluminum Hydroxide/Magnesium Hydroxide/Simethicone Susp 30 ML Cup PO PRN ×2 (06:21→19:59)
[2023-04-06] MEDS: Acetaminophen/HYDROcodone 325-5 MG Tab PO PRN ×4 (06:21→21:28)
[2023-04-06 06:51] LABS: BASOPHILS PERCENT AUTO 0.3 % (0.2-1.2); EOSINOPHILS ABSOLUTE AUTO 0.4 x10^3/uL (0.0-0.5); EOSINOPHILS PERCENT AUTO 10.8 % (0.0-4.0); HEMATOCRIT 38.7 % (33.0-47.0); HEMOGLOBIN 12.6 g/dL (12.0-16.0); IMMATURE GRAN ABSOLUTE AUTO 0.01 x10^3/uL (0.00-0.07); LYMPHOCYTES PERCENT AUTO 29.8 % (25.0-50.0); MEAN CORPUSCULAR HGB CONC 32.6 g/dL (32.0-36.0); MEAN CORPUSCULAR VOLUME 95.1 fL (78.0-93.0); MONOCYTES ABSOLUTE AUTO 0.4 x10^3/uL (0.0-0.8); MONOCYTES PERCENT AUTO 10.5 % (2.0-11.0); NEUTROPHILS ABSOLUTE AUTO 1.6 x10^3/uL (1.8-7.7); NEUTROPHILS PERCENT AUTO 48.3 % (50.0-80.0); PLATELET COUNT,PLT 172 x10^3/uL (130-400); RED BLOOD CELL COUNT 4.07 x10^6/uL (4.00-5.50); WHITE BLOOD CELL COUNT,WBC 3.3 x10^3/uL (4.0-10.0)
[2023-04-06 07:15] LABS: A/G RATIO 0.88; BILIRUBIN TOTAL 0.2 mg/dL (0.2-1.0); CALCIUM 9.3 mg/dL (8.5-10.1); CREATININE 1.1 mg/dL (0.55-1.02); EST CRCL DRUG DOSING (CG) 31.25 mL/min; MAGNESIUM 1.6 mg/dL (1.8-2.4); POTASSIUM,K 4.2 mmol/L (3.5-5.1); PROTEIN TOTAL,TP 6.4 g/dL (6.4-8.2)
[2023-04-06 07:17] LABS: ANION GAP 15.2 mmol/L (5-15)
[2023-04-06] MEDS ORDERED: Bisacodyl 10 MG Supp RECTAL PRN (08:24)
[2023-04-06] MEDS: Furosemide 20 MG Tab PO SCH (08:54)
[2023-04-06] MEDS: Allopurinol 100 MG Tab PO SCH (08:54)
[2023-04-06] MEDS: Tacrolimus 0.5 MG Cap PO SCH ×2 (08:54→21:28)
[2023-04-06] MEDS: Metoprolol Succinate 25 MG Tab.ER PO SCH (08:54)
[2023-04-06] MEDS: Magnesium Oxide 400 MG Tab PO SCH (08:54)
[2023-04-06] MEDS: Pantoprazole 40 MG Tab.CR PO SCH ×2 (08:55→17:29)
[2023-04-06] MEDS: Polyethylene Glycol 3350 Powder 17 GM Packet PO SCH (08:55)
[2023-04-06] MEDS: Sodium Chloride 0.9% 10 ML Syringe FLUSH SCH ×2 (08:56→21:30)
[2023-04-06] MEDS: Sertraline 50 MG Tab PO SCH (08:56)
[2023-04-06] MEDS: Budesonide 0.5 MG/2 ML Neb Susp NEB SCH ×2 (09:54→22:27)
[2023-04-06] MEDS: HYDROmorphone 0.5 MG/0.5 ML Syringe IVPUSH PRN (14:26)
[2023-04-06] MEDS: Clopidogrel 75 MG Tab PO SCH (21:28)
[2023-04-06] MEDS: Ondansetron 4 MG/2 ML SDV IV PRN (21:28)
[2023-04-07] MEDS: Aluminum Hydroxide/Magnesium Hydroxide/Simethicone Susp 30 ML Cup PO PRN (01:03)
[2023-04-07] MEDS: HYDROmorphone 0.5 MG/0.5 ML Syringe IVPUSH PRN (01:04)
[2023-04-07] MEDS: Pantoprazole 40 MG Tab.CR PO SCH ×3 (05:56→17:06)
[2023-04-07 07:10] LABS: BASOPHILS PERCENT AUTO 0.6 % (0.2-1.2); EOSINOPHILS ABSOLUTE AUTO 0.5 x10^3/uL (0.0-0.5); HEMATOCRIT 40.7 % (33.0-47.0); HEMOGLOBIN 13.6 g/dL (12.0-16.0); LYMPHOCYTES ABSOLUTE AUTO 1.6 x10^3/uL (1.0-4.8); LYMPHOCYTES PERCENT AUTO 30.6 % (25.0-50.0); MEAN CORPUSCULAR HEMOGLOBIN 31.1 pg (26.0-32.0); MEAN CORPUSCULAR HGB CONC 33.4 g/dL (32.0-36.0); MEAN CORPUSCULAR VOLUME 92.9 fL (78.0-93.0); MONOCYTES ABSOLUTE AUTO 0.7 x10^3/uL (0.0-0.8); MONOCYTES PERCENT AUTO 13.5 % (2.0-11.0); NEUTROPHILS ABSOLUTE AUTO 2.4 x10^3/uL (1.8-7.7); NEUTROPHILS PERCENT AUTO 46.3 % (50.0-80.0); PLATELET COUNT,PLT 217 x10^3/uL (130-400); RED BLOOD CELL COUNT 4.38 x10^6/uL (4.00-5.50); WHITE BLOOD CELL COUNT,WBC 5.1 x10^3/uL (4.0-10.0)
[2023-04-07 07:39] LABS: A/G RATIO 0.94; ALBUMIN 3.4 g/dL (3.4-5.0); BILIRUBIN TOTAL 0.2 mg/dL (0.2-1.0); CALCIUM 9.4 mg/dL (8.5-10.1); CREATININE 1.4 mg/dL (0.55-1.02); EST CRCL DRUG DOSING (CG) 24.55 mL/min; MAGNESIUM 2.3 mg/dL (1.8-2.4)
[2023-04-07] MEDS: Ondansetron 4 MG/2 ML SDV IV PRN (07:41)
[2023-04-07] MEDS: Polyethylene Glycol 3350 Powder 17 GM Packet PO SCH (08:30)
[2023-04-07] MEDS: Tacrolimus 0.5 MG Cap PO SCH ×2 (08:32→22:11)
[2023-04-07] MEDS: Budesonide 0.5 MG/2 ML Neb Susp NEB SCH ×2 (08:32→23:17)
[2023-04-07] MEDS: Magnesium Oxide 400 MG Tab PO SCH (08:32)
[2023-04-07] MEDS: Metoprolol Succinate 25 MG Tab.ER PO SCH (08:32)
[2023-04-07] MEDS: Furosemide 20 MG Tab PO SCH (08:33)
[2023-04-07] MEDS: Allopurinol 100 MG Tab PO SCH (08:33)
[2023-04-07] MEDS: Sertraline 25 MG Tab PO SCH (08:34)
[2023-04-07] MEDS: Sodium Chloride 0.9% 10 ML Syringe FLUSH SCH ×2 (08:35→23:17)
[2023-04-07] MEDS: Acetaminophen/HYDROcodone 325-5 MG Tab PO PRN (17:06)
[2023-04-07] MEDS: Clopidogrel 75 MG Tab PO SCH (22:11)
[2023-04-08] MEDS: Acetaminophen 325 MG Tab PO PRN (06:09)
[2023-04-08] MEDS: Pantoprazole 40 MG Tab.CR PO SCH (06:09)
[2023-04-08 06:54] LABS: BASOPHILS PERCENT AUTO 0.5 % (0.2-1.2); EOSINOPHILS ABSOLUTE AUTO 0.3 x10^3/uL (0.0-0.5); EOSINOPHILS PERCENT AUTO 6.9 % (0.0-4.0); HEMATOCRIT 36.6 % (33.0-47.0); HEMOGLOBIN 12.2 g/dL (12.0-16.0); LYMPHOCYTES ABSOLUTE AUTO 1.3 x10^3/uL (1.0-4.8); LYMPHOCYTES PERCENT AUTO 29.4 % (25.0-50.0); MEAN CORPUSCULAR HEMOGLOBIN 31.4 pg (26.0-32.0); MEAN CORPUSCULAR HGB CONC 33.3 g/dL (32.0-36.0); MEAN CORPUSCULAR VOLUME 94.1 fL (78.0-93.0); MONOCYTES ABSOLUTE AUTO 0.5 x10^3/uL (0.0-0.8); MONOCYTES PERCENT AUTO 12.4 % (2.0-11.0); NEUTROPHILS ABSOLUTE AUTO 2.2 x10^3/uL (1.8-7.7); NEUTROPHILS PERCENT AUTO 50.8 % (50.0-80.0); PLATELET COUNT,PLT 187 x10^3/uL (130-400); RED BLOOD CELL COUNT 3.89 x10^6/uL (4.00-5.50); WHITE BLOOD CELL COUNT,WBC 4.4 x10^3/uL (4.0-10.0)
[2023-04-08 07:17] LABS: A/G RATIO 0.91; ALBUMIN 2.9 g/dL (3.4-5.0); BILIRUBIN TOTAL 0.3 mg/dL (0.2-1.0); CALCIUM 8.7 mg/dL (8.5-10.1); CREATININE 1.7 mg/dL (0.55-1.02); EST CRCL DRUG DOSING (CG) 20.22 mL/min; POTASSIUM,K 4.6 mmol/L (3.5-5.1); PROTEIN TOTAL,TP 6.1 g/dL (6.4-8.2)
[2023-04-08 07:18] LABS: ANION GAP 17.6 mmol/L (5-15)
[2023-04-08] MEDS: Budesonide 0.5 MG/2 ML Neb Susp NEB SCH (08:55)
[2023-04-08] MEDS: Allopurinol 100 MG Tab PO SCH (08:57)
[2023-04-08] MEDS: Tacrolimus 0.5 MG Cap PO SCH (08:57)
[2023-04-08] MEDS: Magnesium Oxide 400 MG Tab PO SCH (08:57)
[2023-04-08] MEDS: Metoprolol Succinate 25 MG Tab.ER PO SCH (08:57)
[2023-04-08] MEDS: Sertraline 25 MG Tab PO SCH (08:58)
[2023-04-08] MEDS ORDERED: INSULIN ISOPHANE NPH HUMAN 100 UNIT/ML SQ SCH (09:00)
[2023-04-08] MEDS ORDERED: Furosemide 20 MG Tab PO SCH (09:00)
[2023-04-08 10:58] VITALS: BP 133/70; PULSE 67
== END 2023-04-08 10:30 | disposition home or self-care (01) | DRG 439 ==
LOC: VM.ED 16:28 → VM.MS 18:20
PROVIDERS: ADMIT Internal Medicine; ATTEND Family Medicine
DX: K85.90 Acute pancreatitis without necrosis or infection, unspecified (principal); I13.0 Hypertensive heart and chronic kidney disease with heart failure and stage 1 through stage 4 chronic kidney disease, or unspecified chronic kidney disease; I48.20 Chronic atrial fibrillation, unspecified; D84.9 Immunodeficiency, unspecified; I50.32 Chronic diastolic (congestive) heart failure; Z94.4 Liver transplant status; K59.00 Constipation, unspecified; F32.A Depression, unspecified; E11.9 Type 2 diabetes mellitus without complications; E83.42 Hypomagnesemia; J42 Unspecified chronic bronchitis; M19.90 Unspecified osteoarthritis, unspecified site; D63.1 Anemia in chronic kidney disease; I25.10 Atherosclerotic heart disease of native coronary artery without angina pectoris; E11.22 Type 2 diabetes mellitus with diabetic chronic kidney disease; F10.20 Alcohol dependence, uncomplicated; N18.9 Chronic kidney disease, unspecified; I10 Essential (primary) hypertension; E86.0 Dehydration; Z88.8 Allergy status to other drugs, medicaments and biological substances; Z86.010 Personal history of colon polyps; Z87.11 Personal history of peptic ulcer disease; Z98.890 Other specified postprocedural states; Z85.828 Personal history of other malignant neoplasm of skin; Z90.710 Acquired absence of both cervix and uterus; Z91.018 Allergy to other foods; E78.00 Pure hypercholesterolemia, unspecified; Z79.84 Long term (current) use of oral hypoglycemic drugs; Z79.899 Other long term (current) drug therapy; Z90.49 Acquired absence of other specified parts of digestive tract
CPT/HCPCS: 36415; 71045; 74019; 74177; 80048; 80053; 80061; 81003; 82947; 83605; 83690; 83735; 83880; 84145; 85025; 85610; 86140; 87040; 94640; 96361; 96374; 97112-GP; 97116-GP; 97162-GP; 99284; 99285-25; A9270-GY; J1170; J1650; J2405; J3475; J3490; J7030; J7042; J7507; J7620-GY; Q9967

== ENCOUNTER 2024-11-05 09:02 | Emergency (ER) | payer MEDICARE, BC ==
[2024-11-05 09:13] VITALS: BP 136/82; PULSE 80
[2024-11-05] MEDS ORDERED: Sodium Chloride 0.9% 10 ML Syringe FLUSH PRN (09:22)
[2024-11-05 09:39] LABS: BASOPHILS PERCENT AUTO 0.4 % (0.2-1.2); EOSINOPHILS ABSOLUTE AUTO 0.4 x10^3/uL (0.0-0.5); EOSINOPHILS PERCENT AUTO 5.4 % (0.0-4.0); HEMATOCRIT 37.2 % (33.0-47.0); HEMOGLOBIN 12.6 g/dL (12.0-16.0); IMMATURE GRAN ABSOLUTE AUTO 0.02 x10^3/uL (0.00-0.07); LYMPHOCYTES ABSOLUTE AUTO 1.5 x10^3/uL (1.0-4.8); LYMPHOCYTES PERCENT AUTO 22.4 % (25.0-50.0); MEAN CORPUSCULAR HEMOGLOBIN 32.7 pg (26.0-32.0); MEAN CORPUSCULAR HGB CONC 33.9 g/dL (32.0-36.0); MEAN CORPUSCULAR VOLUME 96.6 fL (78.0-93.0); MONOCYTES ABSOLUTE AUTO 0.6 x10^3/uL (0.0-0.8); MONOCYTES PERCENT AUTO 9.1 % (2.0-11.0); NEUTROPHILS ABSOLUTE AUTO 4.3 x10^3/uL (1.8-7.7); NEUTROPHILS PERCENT AUTO 62.4 % (50.0-80.0); PLATELET COUNT,PLT 170 x10^3/uL (130-400); RED BLOOD CELL COUNT 3.85 x10^6/uL (4.00-5.50); WHITE BLOOD CELL COUNT,WBC 6.9 x10^3/uL (4.0-10.0)
[2024-11-05] MEDS: Ondansetron 4 MG/2 ML SDV IVPUSH ONE (09:39)
[2024-11-05] MEDS: HYDROmorphone 0.5 MG/0.5 ML Syringe IVPUSH ONE (09:42)
[2024-11-05 09:53] LABS: APPEARANCE,URINE SLIGHTLY CLOUDY (CLEAR); BILIRUBIN,URINE NEGATIVE (NEGATIVE); COLOR,URINE LIGHT YELLOW (YELLOW); GLUCOSE,URINE 500 mg/dL (NEGATIVE); KETONES,URINE NEGATIVE (NEGATIVE); LEUKOCYTE ESTERASE,URINE NEGATIVE (NEGATIVE); NITRITE,URINE NEGATIVE (NEGATIVE); OCCULT BLOOD,URINE NEGATIVE (NEGATIVE); PROTEIN,URINE NEGATIVE (NEGATIVE); UROBILINOGEN,URINE 0.2 EU/dL (0.2)
[2024-11-05 09:57] LABS: INR 0.9 (0.9-1.1); PROTHROMBIN TIME 10.1 SEC (9.6-12.0); PTT,PARTIAL THROMBOPLSTIN TIME 26.1 SEC (23.5-33.2)
[2024-11-05 09:59] LABS: A/G RATIO 1.06; ALANINE AMINOTRANSFERASE,ALT 15 U/L (14-59); ALBUMIN 3.4 g/dL (3.4-5.0); ALKALINE PHOSPHATASE 77 U/L (46-116); AMYLASE 63 U/L (25-115); ASPARTATE AMNIOTRANSFERASE,AST 15 U/L (15-37); BILIRUBIN TOTAL 0.4 mg/dL (0.2-1.0); BLOOD UREA NITROGEN,BUN 30 mg/dL (7-18); C-REACTIVE PROTEIN < 0.50 mg/dL (<=0.50); CALCIUM 9.4 mg/dL (8.5-10.1); CARBON DIOXIDE,CO2 27 mmol/L (21-32); CHLORIDE,CL 105 mmol/L (98-107); CREATININE 1.4 mg/dL (0.55-1.02); EST CRCL DRUG DOSING (CG) 24.99 mL/min; ESTIMATED GFR 39 mL/min (>=60); GLUCOSE RANDOM 168 mg/dL (70-99); LIPASE 96 U/L (19-71); MAGNESIUM 1.9 mg/dL (1.8-2.4); PROTEIN TOTAL,TP 6.6 g/dL (6.4-8.2); SODIUM,NA 143 mmol/L (136-145)
[2024-11-05] MEDS ORDERED: Lactated Ringers 1,000 ML IV ONE (10:04)
[2024-11-05] MEDS: Lactated Ringers 1,000 ML IV ONE (10:23)
== END 2024-11-05 11:06 | disposition home or self-care (01) ==
LOC: VM.ED 09:02
DX: K85.90 Acute pancreatitis without necrosis or infection, unspecified (principal); I13.0 Hypertensive heart and chronic kidney disease with heart failure and stage 1 through stage 4 chronic kidney disease, or unspecified chronic kidney disease; N18.9 Chronic kidney disease, unspecified; I50.9 Heart failure, unspecified; I48.91 Unspecified atrial fibrillation; E78.00 Pure hypercholesterolemia, unspecified; E11.22 Type 2 diabetes mellitus with diabetic chronic kidney disease; Z88.8 Allergy status to other drugs, medicaments and biological substances; I25.10 Atherosclerotic heart disease of native coronary artery without angina pectoris; Z91.018 Allergy to other foods; Z88.1 Allergy status to other antibiotic agents; Z79.84 Long term (current) use of oral hypoglycemic drugs; Z79.899 Other long term (current) drug therapy; Z79.82 Long term (current) use of aspirin; Z79.4 Long term (current) use of insulin; Z95.5 Presence of coronary angioplasty implant and graft
CPT/HCPCS: 80053; 81003; 82150; 83605; 83690; 83735; 85025; 85610; 85730; 86140; 96361; 96374; 96375; 99284; J2405; J7120